=== PATIENT | male | born 1945 | race Caucasian/White ===

== ENCOUNTER 2018-03-08 05:05 | Emergency (ER) | payer MEDICARE, OTHER ==
[~2018-03-08] VITALS: Ht 185.4 cm; Wt 108.0 kg
[2018-03-08] MEDS ORDERED: HYDROcodone/acetaminophen 10/325mg tab PO ONE (06:10)
[2018-03-08] MEDS ORDERED: HYDR-3965 PO (06:20)
[2018-03-08 06:37] VITALS: BP 150/88
== END 2018-03-08 06:35 | disposition home or self-care (01) ==
LOC: EDBD 05:06 → ER 05:06
DX: S22.31XA Fracture of one rib, right side, initial encounter for closed fracture (principal); W11.XXXA Fall on and from ladder, initial encounter; Y93.89 Activity, other specified; Y92.89 Other specified places as the place of occurrence of the external cause; Y99.8 Other external cause status
CPT/HCPCS: 71100; 73502; 99283